=== PATIENT | male | born 1995 | race Two or more races ===

== ENCOUNTER 2025-01-18 15:31 | Emergency (ER) | payer SELFPAY ==
[~2025-01-18] VITALS: Ht 165.1 cm; Wt 56.9 kg
--- NOTE | 2025-01-18 16:08 | ED.PDOC ---
HPI (NEURO) HPI Comments 29 year old white male presents to the [facility] complaining of right-sided headache sudden onset duration 20 minute severe seen at no vomiting pain to the neck on right side Chief Complaint: Headache Time Seen by MD: 15:46 Primary Care Provider: miguel a Reviewed Notes: Nurses Notes, Medications, Allergies Information Source: Patient Mode of Arrival: Ambulatory Severity: Moderate Dizziness/Weakness Severity: Does not affect activitie Headache Severity: Moderate Timing: Minutes Duration: Since onset Headache Quality: Throbbing, Sharp, Stabbing, Tight Headache Location: Parietal Onset: At rest Circumstances: Spontaneous History of: Hypertension, Substance abuse Modifying factors: Head position, Head movement Associated Signs and Symptoms: Headache Past Medical History PAST MEDICAL HISTORY: Denies Past Medical History (Other): Pain epigastrium Surgical History: Denies all surgeries Family History Family History: Reviewed,noncontributory to illness, No family hx of Cancer, No family hx of DM, No family hx of Heart tena, No family hx of HTN, No family hx ofKidney tena, No family hx of Liver tena, No family hx of Lung tena, No family hx of Stroke Social History Smoker: Non-Smoker Alcohol: Denies ETOH Use Drugs: Marijuana Lives In: Home Constitutional: reports: fatigue, malaise; denies: chills, diaphoresis, fever, sweats, weakness, others EENTM: denies: blurred vision, double vision, ear bleeding, ear discharge, ear drainage, ear pain, ear ringing, eye pain, eye redness, hearing loss, mouth pain, mouth swelling, nasal discharge, nose bleeding, nose congestion, nose pain, photophobia, tearing, throat pain, throat swelling, voice changes, others Respiratory: denies: cough, hemoptysis, orthopnea, SOB at rest, shortness of breath, SOB with excertion, stridor, wheezing, others Cardiovascular: denies: chest pain, dizzy spells, diaphoresis, Dyspnea on exertion, edema, irregular heart beat, left arm pain, lightheadedness, palpitations, PND, syncope, others Gastrointestinal: reports: abdominal pain; denies: abdomen distended, blood streaked bowels, constipated, diarrhea, dysphagia, difficulty swallowing, hematemesis, melena, nausea, poor appetite, poor fluid intake, rectal bleeding, rectal pain, vomiting, others Genitourinary: denies: burning, dysuria, flank pain, frequency, hematuria, incontinence, penile discharge, penile sore, pain, testicle pain, testicle swelling, urgency, others Neurological: reports: headache; denies: dizziness, fainting, left sided numbness, left sided weakness, numbness, paresthesia, pre-existing deficit, right sided numbness, right sided weakness, seizure, speech problems, tingling, tremors, weakness, others Musculoskeletal: denies: back pain, gout, joint pain, joint swelling, muscle pain, muscle stiffness, neck pain, others Integumetry: denies: bruises, change in color, change in hair/nails, dryness, laceration, lesions, lumps, rash, wounds, others Allergic/Immunocompromised: denies: Difficulty Healing, Frequent Infections, Hives, Itching, others Hematologic/Lymphatic: denies: anemia, blood clots, easy bleeding, easy bruising, swollen glands, others Endocrine: denies: excessive hunger, excessive sweating, excessive thirst, excessive urination, flushing, intolerance to cold, intolerance to heat, unexplained weight gain, unexplained weight loss, others Psychiatric: denies: anxiety, bipolar disorder, depression, hopeless, panic disorder, schizophrenia, sleepless, suicidal, others All Other Systems: Reviewed and Negative Physical Exam General Appearance: Moderate Distress HEENT: Normal ENT Inspection, PERRL/EOMI Neck: Full Range of Motion, Tender Lateral Respiratory: Chest Non-Tender, Lungs Clear, No Accessory Muscle Use, No Respira tory Distress, Normal Breath Sounds Cardiovascular: No Edema, No JVD, No Murmur, No Gallop, Normal Peripheral Pulses, Regular Rate/Rhythm Breast Exam: Deferred Gastrointestinal: No Organomegaly, Non Tender, No Pulsatile Mass, Normal Bowel Sounds, Soft Genitalia: Deferred Pelvic: Deferred Rectal: Deferred Extremities: No calf tenderness, Normal capillary refill, Normal inspection, Normal range of motion, Non-tender, No pedal edema Neurologic: Alert, blade groover II-XII nml as Tested, Depressed Affect, Headache, No Motor Deficits, No Sensory Deficits Cerebellar Function: Normal Reflexes: Normal Skin: Dry, Normal Color, Warm Peripheral Pulses: 1+ carotid (R), 1+ carotid (L) Lymphatic: No Adenopathy Was a procedure done? Was a procedure done?: No Differential Diagnosis (SZ) Seizure: Mass Lesion CVA: Mass Lesion, SAH General Weakness: N/A Headache: Cluster, Migraine, Subarachnoid Hemorrhage, Mass Lesion, Sinusitis, Trigeminal Neuralgia X-Ray, Labs, Meds, VS Vital Signs Date Time Temp Pulse Resp B/P (MAP) Pulse Ox O2 Delivery O2 Flow Rate FiO2 01/18/25 16:51 97.4 67 16 116/69 (85) 99 97.4 01/18/25 15:38 117 16 01/18/25 15:38 97.6 117 16 164/98 (120) 98 97.6 01/18/25 15:38 97.6 117 16 164/98 (120) 98 97.6 Current Medications Medications (Trade) Dose Ordered Sig/Nai Route Start Time Stop Time Status Last Admin Ketorolac Tromethamine (Toradol Injection) 60 mg ONCE ONCE IM 01/18/25 16:15 01/18/25 16:16 DC 01/18/25 16:49 Metoclopramide HCl (Reglan Injection) 10 mg ONCE ONCE IM 01/18/25 16:15 01/18/25 16:16 DC 01/18/25 16:49 X-Ray, Labs, Meds, VS Comment Course in the [facility] eventful patient with severe right-sided headache CT of the head is normal Patient will be discharged home to follow up with his PCP or a neurologist Time of 1ST Reevaluation: 16:07 Reevaluation 1ST: Unchanged Time of 2ND Reevaluation: 17:48 Reevaluation 2ND: Improved Consultation: PCP, Neurology Patient Education/Counseling: Diagnosis, Treatment, Prognosis, Need For Follow Up Family Education/Counseling: Diagnosis, Treatment, Prognosis, Need For Follow Up, No Family Present Departure 1 Departure Time of Disposition: 17:47 Impression: Primary Impression: Cluster headache syndrome, not intractable Qualified Codes: G44.019 - Episodic cluster headache, not intractable Disposition: 01 HOME / SELF CARE / HOMELESS Condition: Fair e-Prescriptions Ondansetron Odt 4MG Tab (ZOFRAN PO) 4 Mg Tb 4 MG PO QID for 5 Days, #20 TAB ODT TAB-DISSOLVE IN MOUTH, THEN SWALLOW Prov: ALB[place]IA WHYTE MD 01/18/25 Naproxen (NAPROSYN TABLET) 500 Mg Tb 1 TAB PO BID for 10 Days, #20 TAB 1 Refill Prov: [place] WHYTE MD 01/18/25 Discharged With: Self Critical Care Note Critical Care Time?: No Stability Stability form required: No Heart Score Heart Score: Heart Score Response (Comments) Value History N/A 0 EKG N/A 0 Age <45 0 Risk Factors No known risk factors 0 Troponin N/A 0 Total 0 ALB[place] WHYTE MD Jan 18, 2025 16:08
--- NOTE | 2025-01-18 16:43 | DVH ---
Exam: CT HEAD WITHOUT CONTRAST History: Severe right-sided headache Technique: [address] images through the posterior fossa and the supratentorial compart ment were acquired without contrast and imaged using soft tissue and bone algorithms. RADIATION DOSE: DLP 783.83 mGy.cm; CTDI vol 48.88 mGy. Comparison: None Findings: There is motion artifact. There is no evidence of an intracranial hemorrhage, acute large vessel infarct, mass effect, or midli ne shift. The calvarium, orbits, paranasal sinuses, sella, middle ears, and mastoids are unremarkable. The superficial soft tissues are within normal limits. Impression: 1. Limited evaluation due to motion artifact. 2. No definite acute intracranial abnormality.
[2025-01-18] MEDS: KETOROLAC TROMETH 60MG/2ML VIAL IM ONE (16:49)
[2025-01-18] MEDS: METOCLOPRAMIDE HCL 5MG/ml INJ 2ml VIAL IM ONE (16:49)
[2025-01-18 16:51] VITALS: BP 116/69; PULSE 67; RESP 16; TEMP 97.4; O2SAT 99
[2025-01-18] MEDS ORDERED: ZOFR4T PO (17:57)
[2025-01-18] MEDS ORDERED: NAP500T PO (17:57)
== END 2025-01-18 18:03 | disposition home or self-care (01) ==
LOC: ER 15:31
DX: G44.009 Cluster headache syndrome, unspecified, not intractable (principal); Z98.890 Other specified postprocedural states
CPT/HCPCS: 70450; 96372; 99285; J1885; J2765